=== PATIENT | female | born 1970 | race Caucasian/White ===

== ENCOUNTER 2019-11-18 09:01 | Outpatient (CLI) | payer OTHER, SELFPAY ==
--- NOTE | 2019-11-18 10:00 | NEURO_ITS ---
TEST: ELECTROENCEPHALOGRAM DIAGNOSIS: SEIZURE PATIENT NUMBER: [id number] EEG NUMBER: [id number] RECORDING DATE: 11/18/19 CONDITION OF RECORDING: Awake, drowsy and sleep EEG DESCRIPTION: Basic resting occipital frequency consists of moderate amount of fairly well organized low to medium voltage 8-10hz alpha mixed with low voltage 15-18hz beta. Photic stimulation produced normal drive. During drowsiness low voltage beta activity is seen diffusely mixed with waxing and waning posterior alpha rhythms. Bilateral symmetrical sleep activity is seen during sleep. Nonparoxysmal. Nonfocal. Nonlateralizing. IMPRESSION: Normal record. [facility]
== END 2019-11-18 09:02 | disposition home or self-care (01) ==
PROVIDERS: PCP Family Medicine; Visit Provider Psychiatry & Neurology Neurology
DX: R56.9 Unspecified convulsions (principal)
CPT/HCPCS: 95816

== ENCOUNTER 2021-08-14 00:29 | Emergency (ER) | payer OTHER, SELFPAY ==
--- NOTE | ~2021-08-14 | CT_ITS ---
EXAMINATION: CT abdomen pelvis w con DATE: 08/14/2021 02:09 INDICATION: Left abdominal pain TECHNIQUE: Computed tomography (CT) of the abdomen and pelvis was performed with 100 CC Omnipaque 350 intravenous contrast. Automated exposure control and iterative reconstruction technique were employe d. Exam dose: 1345.05 mGy-cm total exam DLP. COMPARISON: None. FINDINGS: Cardiomegaly. Right ventricular pacemaker lead is noted. No pericardial or pleural effusion. The lung bases are clear of consolidation. Small fat-containing left foramen of Bochdalek hernia. Status post cholecystectomy. No hepatic, splenic, pancreatic space-occupying mass lesion. No bile duct or pancreatic duct dilatati on. Probable bilateral small adrenal adenomas. Small nonobstructing lower pole right renal calculus. No urinary tract calculus or hydroureteronephro sis is noted otherwise. There is atherosclerotic calcification but normal caliber of the abdominal aorta and iliac arteries. Normal appendix. Diverticulosis of the sigmoid colon; no evidence of diverticulitis. The uterus, adnexal areas and urinary bladder are unremarkable. Small fat-containing umbilical hernia. Very large fat-containing infraumbilical hernia, measuring up to 11 mm transverse dimension, 11 cm vertical and 6.5 cm AP dimension. There is some increased densit y of the herniated fat; consider inflammation or edema, possible strangulation. No suspicious osteoly tic or osteoblastic lesions are noted. IMPRESSION: Very large fat-containing infraumbilical abdominal wall hernia; mildly increased fat str anding and density of the herniated fat; cannot exclude edema or inflammation. Clinical correlation i s advised Status post cholecystectomy Normal appendix Diverticulosis of the sigmoid colon; no CT evidence of diverticulitis Reviewed, dictated and finalized at [facility]. Reviewed, dictated and finalized at [facility]. IMPRESSION: Very large fat-containing infraumbilical abdominal wall hernia; mi ldly increased fat stranding and density of the herniated fat; cannot exclude e kameron or inflammation. Clinical correlation is advised Status post cholecystectomy Normal appendix Diverticulosis of the sigmoid colon; no CT evidence of diverticulitis
[2021-08-14 00:33] VITALS: BP 128/67; PULSE 60; RESP 16; TEMP 36.2; O2SAT 97
[2021-08-14] MEDS: KETOROLAC 30 MG/ML VIAL (*BKC) 15 MG IV PUSH (01:09)
[2021-08-14] MEDS: SODIUM CHLORIDE 0.9% IV 1,000 ML 999 ML IV CONT (01:10)
[2021-08-14 01:22] LABS: Basophils Percent Auto 0.3 % (0.2-1.2); Eosinophils Absolute Auto 0.1 K/mm3 (0-0.3); Eosinophils Percent Auto 0.9 % (0-4.4); Hematocrit 37.2 % (37.0-47.0); Hemoglobin 11.6 g/dL (12.0-15.0); Immature Granulocyte Absolute 0.03 K/mm3 (0.00-0.031); Immature Granulocyte Percent A 0.5 % (0-0.5); Lymphocytes Percent Auto 31.4 % (18.3-44.2); Mean Corpuscular HGB Conc 31.2 g/dl (32-36); Mean Corpuscular Hemoglobin 29.9 pg (26-34); Mean Corpuscular Volume 95.9 fl (80-100); Mean Platelet Volume 9.5 fl (7.4-10.4); Monocytes Absolute Auto 0.6 K/mm3 (0.1-0.6); Monocytes Percent Auto 8.8 % (2.6-8.5); Neutrophils Absolute Auto 3.7 K/mm3 (1.3-6.7); Neutrophils Percent Auto 58.1 % (45.5-73.1); Platelet Count Result 195 k/mm3 (150-375); Red Blood Count 3.88 M/mm3 (4.2-5.4); Red Cell Distribution Width 15.6 % (11.5-14.5); White Blood Count 6.4 K/mm3 (4.5-10.0)
[2021-08-14 01:26] LABS: Add Urine Microscopic? YES; Appearance Urine Cloudy (Clear); Bilirubin Urine Negative (Negative); Blood Urine Negative (Negative); Color Urine Yellow (Yellow); Glucose Urine UA Negative (Negative); Hyaline Casts Urine 15-19 /lpf; Ketones Urine Negative (Negative); Leukocyte Esterase Ur Trace LEU/UL (Negative); Mucus Urine Heavy /lpf; Nitrate Urine Negative (Negative); Protein Urine Negative (Negative); Specific Grav Ur 1.023 (1.001-1.035); Squamous Epithelial Cell Urine Many /hpf (Few)
[2021-08-14 01:36] LABS: Alanine Aminotransferase 12 U/L (4-35); Albumin Level 3.5 g/dL (3.5-5.1); Alkaline Phosphatase 74 U/L (38-126); Anion Gap 3 mmol/L (8-16); Aspartate Amino Transferase 17 U/L (14-36); Bilirubin,Total 0.3 mg/dL (0.2-1.3); Blood Urea Nitrogen 14 mg/dL (7-17); Calcium 8.6 mg/dL (8.4-10.2); Carbon Dioxide 25 mmol/L (22-30); Chloride 107 mmol/L (98-107); Estimated CRCL calculation 71 ml/min; Estimated Glomerular Filt Rate 58; Glucose 124 mg/dL (65-110); Lipase 35 U/L (23-300); Potassium 3.6 mmol/L (3.4-5.0); Sodium 135 mmol/L (137-145)
--- NOTE | 2021-08-14 01:36 | ED.ABDPAIN ---
HPI - Abdominal Pain General Chief Complaint: Abdominal Pain Stated Complaint: Abd pain Time Seen by Provider: 08/14/21 00:45 Source: patient History of Present Illness HPI narrative: Patient presents with abdominal pain. reports symptoms started approximately 24 hours ago had been getting progressively worse so she came to the ER for evaluation. Her pain is primarily on her upper abdomen and on her left abdomen is achy, constant, no clear aggravating or alleviating factors. She denies any nausea or vomiting she denies any changes in bowel movement such as constipation or dark region is any bloody stool. Denies urinary symptoms or vaginal discharge. Related Data Allergies Allergy/AdvReac Type Severity Reaction Status Date / Time azithromycin Allergy Unknown Verified 08/14/21 01:12 codeine AdvReac N/V Verified 10/31/10 16:52 Review of Systems Review of Systems: CONSTITUTIONAL: Denies fever, chills, or sweats. EYES: Denies visual changes, redness, or discharge. ENT: Denies rhinorrhea, congestion, sore throat, or otalgia. CARDIOVASCULAR: Denies chest pain, palpitations, or edema. RESPIRATORY: Denies cough or dyspnea. GASTROINTESTINAL: Denies nausea, vomiting, or diarrhea. GENITOURINARY: Denies dysuria or hematuria. SKIN: Denies rash or itching. MUSCULOSKELETAL: Denies back pain, joint pain, or myalgia. NEUROLOGIC: Denies headache, numbness, dizziness, or weakness. PSYCHIATRIC: Denies anxiety or depression. All systems reviewed & are unremarkable except as noted in HPI and below PMFSH Past Medical History Medical History (Updated 08/14/21 @ 03:40 by Adiel James MD) A-fib Exam Narrative: GENERAL: Well-appearing, well-nourished, and in no acute distress. HEAD: Normocephalic, atraumatic. EYES: PERRLA and EOMI. ENT: Nares clear, no rhinorrhea or epistaxis. Mucous membranes moist. NECK: Supple. No masses. No JVD ABDOMEN: Moderate tenderness in the upper abdomen and left abdomen most noted in the left lower quadrant soft, nondistended, EXTREMITIES: Normal range of motion. No edema. SKIN: Warm, dry, no rash. NEURO: No focal deficits. Alert and oriented x3. PSYCH: Normal mood and affect. Course Reevaluation(s) Reevaluation #1: Patient sleeping comfortably easily awoken results and plan reviewed with patient. She reports she is feeling much better and is comfortable with the outpatient plan. Date: 08/14/21 Time: 03:37 Vital Signs Vital signs: Vital Signs Temperature 36.2 C L 08/14/21 00:33 Pulse Rate 60 08/14/21 00:33 Respiratory Rate 16 08/14/21 00:33 Blood Pressure 128/67 08/14/21 00:33 Pulse Oximetry 97 08/14/21 00:33 Temperature 36.2 C L 08/14/21 00:33 Pulse Rate 55 L 08/14/21 03:49 Respiratory Rate 16 08/14/21 03:49 Blood Pressure 128/71 08/14/21 03:49 Pulse Oximetry 97 08/14/21 03:49 MDM - Abdominal Pain MDM Narrative Medical decision making narrative: H&P as above, vss, pt looks clinically well, exam with lower abdominal pain, labs unremarkable, img without acute surgical process, additional labs/img considered, symptomatic relief available as needed, on reevaluation pt continues to looks clinically well. Symptoms remain of unclear etiology may represent early colitis may be related to patient's hernia, dns perforation, bowel obstruction, diverticulitis, appendicitis, severe sepsis. plan to tx/monitor as op w/ pcm f/u findings/plan discussed with pt, pt agree/comfortable with plan, return precautions given Lab Data Result diagrams: 08/14/21 01:12 08/14/21 01:12 Labs: Lab Results 08/14/21 08/14/21 08/14/21 Range/Units 01:12 01:12 01:12 WBC 6.4 (4.5-10.0) K/mm3 RBC 3.88 L (4.2-5.4) M/mm3 Hgb 11.6 L (12.0-15.0) g/dL Hct 37.2 (37.0-47.0) % MCV 95.9 (80-100) fl MCH 29.9 (26-34) pg MCHC 31.2 L (32-36) g/dl RDW 15.6 H (11.5-14.5) % Plt Count 195 (150-375) k/mm3 MPV 9.5 (7.4-10.4) fl Imm
[2021-08-14 03:49] VITALS: BP 128/71; PULSE 55; RESP 16; O2SAT 97
== END 2021-08-14 03:46 | disposition home or self-care (01) ==
PROVIDERS: Emergency Provider Emergency Medicine; PCP Family Medicine
DX: K42.9 Umbilical hernia without obstruction or gangrene (principal); R10.12 Left upper quadrant pain; R10.32 Left lower quadrant pain; I48.91 Unspecified atrial fibrillation; K57.30 Diverticulosis of large intestine without perforation or abscess without bleeding
CPT/HCPCS: 36415; 74177; 80053; 81001; 83690; 85025; 96361; 96374; 99284; J1885; J7030; Q9967